=== PATIENT | male | born 1990 | race Caucasian/White ===

== ENCOUNTER 2019-06-29 13:38 | Emergency (ER) | payer OTHER ==
[~2019-06-29] VITALS: Ht 175.3 cm; Wt 67.1 kg
[~2019-06-29 13:38] MED LIST: BENTYL10 MG ORAL; LIBRIUM25 MG ORAL; NKM; OMEPRAZOLE20 M2 ORAL; PRILOSEC10 M1 ORAL; RANITIDINE HCL150 MG ORAL; ZOFRAN ODT4 MG ORAL; ZOFRAN4 M3 ORAL; ZOFRAN4 MG ORAL; ZOFRAN4 MG/5 ML ORAL
[2019-06-29] MEDS ORDERED: KEPPRA1000 MG ORAL (13:40)
[2019-06-29] MEDS ORDERED: levETIRAcetam 1,000mg/NS100ml 100 ML IVPB ONE (14:00)
--- NOTE | 2019-06-29 14:00 | Emergency Room Report ---
History of Present Illness General Chief Complaint: Seizure Source: Patient Present Illness HPI Patient is a 28-year-old male who presents after increased seizure activity. Patient a prior history of seizure disorder. He reports previously taking Keppra 1000 mg twice a day. He denies compliance with medications for the past 3 days. He reports drinking alcohol intermittently heavily. He reports having multiple episodes of vomiting as well as diarrhea over the past day. He reports having some epigastric abdominal cramping. Denies any fever. Denies any sick contacts. Denies any neck stiffness or pain. Reports having some epigastric abdominal discomfort which she described as crampy in nature. Associate with some burning. Allergies: Coded Allergies: No Known Allergies (Unverified , 08/19/13) Patient History Past Medical History: see triage record Reviewed Nursing Documentation: PMH: Agreed; PSxH: Agreed Nursing Documentation-PMH Past Medical History: No History, Except For Hx Seizures: Yes Review of Systems All Other Systems: negative except mentioned in HPI Physical Exam Vital Signs Date Time Temp Pulse Resp B/P (MAP) Pulse Ox O2 Delivery O2 Flow Rate FiO2 06/29/19 13:34 97.9 120 18 100/51 (67) 98 Sp02 EP Interpretation: reviewed, normal General Appearance: normal inspection, well appearing, no apparent distress, alert, GCS 15 Head: atraumatic ENT: normal ENT inspection, hearing grossly normal, normal voice Neck: normal inspection, full range of motion, supple, no bony tend Respiratory: normal inspection, lungs clear, normal breath sounds, no respiratory distress, no retraction, no wheezing Cardiovascular #1: no edema, tachycardia Gastrointestinal: normal inspection, normal bowel sounds, non tender, soft, no guarding, no hernia Genitourinary: no CVA tenderness Musculoskeletal: normal inspection, back normal, normal range of motion Neurologic: normal inspection, alert, oriented x3, responsive, antique repairer III-XII nml as tested, speech normal Psychiatric: normal inspection, judgement/insight normal, mood/affect normal Medical Decision Making Diagnostic Impression: Primary Impression: Alcohol abuse Additional Impression: Seizure disorder ER Course Patient is a 28-year-old male presented after seizure. Differential diagnosis include was not limited to medication noncompliance, alcohol withdrawal, electrolyte abnormality among others. Because of complexity of patient's case laboratory tests and imaging studies were ordered. Patient was noted to have prior history of seizure disorder. He was loaded with IV Keppra. Per patient history he had missed dosages of his medications and patient seizures were likely related to noncompliance. Patient also reports having patient was given IV fluids due to metabolic acidosis is likely alcoholic ketosis. He was given IV Ativan. Patient is noted to have improvement in his mental status as well as improvement in his discomfort. Patient will be discharged home. He is advised to follow-up with primary care physician for recheck. He is advised not to use alcohol. Patient was not advised not to drive a motor vehicle. This medical record is generated with [employer] dish machine operator software. There may be some dish machine operator discrepancies related to use of this software Labs Test 06/29/19 14:15 White Blood Count 16.9 K/UL (4.8-10.8) Red Blood Count 5.12 M/UL (4.70-6.10) Hemoglobin 14.1 G/DL (14.2-18.0) Hematocrit 43.7 % (42.0-52.0) Mean Corpuscular Volume 85 FL (80-99) Mean Corpuscular Hemoglobin 27.6 PG (27.0-31.0) Mean Corpuscular Hemoglobin Concent 32.2 G/DL (32.0-36.0) Red Cell Distribution Width 15.5 % (11.6-14.8) Platelet Count 433 K/UL (150-450) Mean Platelet Volume 4.8 FL (6.5-10.1) Neutrophils (%) (Auto) 75.1 % (45.0-75.0) Lymphocytes (%) (Auto) 18.9 % (20.0-45.0) Monocytes (%) (Auto) 4.8 % (1.0-10.0) Eosinophils (%) (Auto) 0.3 % (0.0-3.0) Basophils (%) (Auto) 1.0 % (0.0-2.0) Sodium Level 130 MMOL/L (136-145) Potassium Level 3.8 MMOL/L (3.5-5.1) Chloride Level 90 MMOL/L (98-107) Carbon Dioxide Level 9 MMOL/L (21-32) Anion Gap 31 mmol/L (5-15) Blood Urea Nitrogen 8 mg/dL (7-18) Creatinine 1.3 MG/DL (0.55-1.30) Estimat Glomerular Filtration Rate > 60 mL/min (>60) Glucose Level 87 MG/DL (74-106) Calcium Level 8.9 MG/DL (8.5-10.1) Total Bilirubin 0.5 MG/DL (0.2-1.0) Aspartate Amino Transf (AST/SGOT) 30 U/L (15-37) Alanine Aminotransferase (ALT/SGPT) 26 U/L (12-78) Alkaline Phosphatase 130 U/L (46-116) Total Creatine Kinase 59 U/L (26-308) Troponin I 0.000 ng/mL (0.000-0.056) Total Protein 8.7 G/DL (6.4-8.2) Albumin 4.0 G/DL (3.4-5.0) Globulin 4.7 g/dL Albumin/Globulin Ratio 0.9 (1.0-2.7) Thyroid Stimulating Hormone (TSH) 1.003 uiU/mL (0.358-3.740) Serum Alcohol 34 mg/dL Last Vital Signs Date Time Temp Pulse Resp B/P (MAP) Pulse Ox O2 Delivery O2 Flow Rate FiO2 06/29/19 13:34 97.9 120 18 100/51 (67) 98 Status: improved Disposition: HOME, SELF-CARE Condition: Stable Scripts Lorazepam* (ATIVAN*) 1 Mg Tablet 1 MG ORAL THREE TIMES A DAY, #14 TAB Prov: Allen Charles MD 06/29/19 Ondansetron (Zofran) 4 Mg Tablet 4 MG ORAL Q6H PRN for Nausea & Vomiting, #14 TAB 0 Refills Prov: Allen Charles MD 06/29/19 Allen Charles MD Jun 29, 2019 14:00
[2019-06-29 14:45] VITALS: BP 113/47
[2019-06-29 14:53] LABS: EOSINOPHILS % (AUTO) 0.3 % (0.0-3.0); HEMATOCRIT 43.7 % (42.0-52.0); HEMOGLOBIN 14.1 G/DL (14.2-18.0); LYMPHOCYTES % (AUTO) 18.9 % (20.0-45.0); MEAN CORPUSCULAR VOLUME 85 FL (80-99); MONOCYTES % (AUTO) 4.8 % (1.0-10.0); NEUTROPHILS % (AUTO) 75.1 % (45.0-75.0); PLATELET COUNT 433 K/UL (150-450); RED BLOOD COUNT 5.12 M/UL (4.70-6.10); RED CELL DISTRIBUTION WIDTH 15.5 % (11.6-14.8); WHITE BLOOD COUNT 16.9 K/UL (4.8-10.8)
[2019-06-29] MEDS ORDERED: LORazepam Inj 2mg/ml 1ml IV ONE (15:00)
[2019-06-29 15:20] LABS: CREATINE KINASE 59 U/L (26-308)
[2019-06-29 15:25] LABS: ALANINE AMINOTRANSFERASE 26 U/L (12-78); ALBUMIN/GLOBULIN RATIO 0.9 (1.0-2.7); ALKALINE PHOSPHATASE 130 U/L (46-116); ANION GAP 31 mmol/L (5-15); ASPARTATE AMINO TRANSFERASE 30 U/L (15-37); BILIRUBIN,TOTAL 0.5 MG/DL (0.2-1.0); BLOOD UREA NITROGEN 8 mg/dL (7-18); CALCIUM 8.9 MG/DL (8.5-10.1); CHLORIDE 90 MMOL/L (98-107); CREATININE 1.3 MG/DL (0.55-1.30); POTASSIUM 3.8 MMOL/L (3.5-5.1); SODIUM 130 MMOL/L (136-145)
[2019-06-29 15:44] LABS: CARBON DIOXIDE 9 MMOL/L (21-32)
[2019-06-29 16:46] VITALS: BP 119/76
[2019-06-29 18:39] VITALS: BP 121/63
[2019-06-29] MEDS ORDERED: ZOFRAN4 MG ORAL (18:47)
[2019-06-29] MEDS ORDERED: ATIVAN1 MG ORAL (18:53)
[2019-06-29] MEDS ORDERED: Dextrose 5%/Lactated Ringer's 1,000 ML IV SCH (19:00)
[2019-06-29 19:05] VITALS: BP 116/70
[2019-06-29 20:36] VITALS: BP_SYST 120; BP_DIAS 72; BP_DIAS 78
--- NOTE | 2019-07-01 14:58 | Cardiology Report ---
APPROVED REPORT EKG Measurement Heart [id number] Sinus tachycardia Otherwise normal ECG
== END 2019-06-29 20:36 | disposition home or self-care (01) ==
LOC: EDBD 13:38 → EMR 17:15
DX: F10.10 Alcohol abuse, uncomplicated (principal); G40.909 Epilepsy, unspecified, not intractable, without status epilepticus; Y90.1 Blood alcohol level of 20-39 mg/100 ml; Z79.899 Other long term (current) drug therapy
CPT/HCPCS: 36415; 80053; 82550; 84443; 84484; 85025; 93005; 96361; 96374; 96375; G0480; J1953; J2405; S0028; Z7502; 99284; J7030